=== PATIENT | female | born 1935 | race Caucasian/White ===

== ENCOUNTER 2017-11-21 11:25 | Emergency (ER) | payer MEDICARE, BC ==
[~2017-11-21] VITALS: Ht 152.4 cm; Wt 76.7 kg
[~2017-11-21 11:25] MED LIST: ACET-907 PO; LABE200T PO; NITR0.4T PO; ONDA4TAB8 PO; TRAM50TA2 PO; VALS1TAB52 PO
--- NOTE | 2017-11-21 11:38 | NUR ---
PT TO ED DT SOB. PATIENT IS AWAKE AND ALERT, APPEARS IN NO APPRARENT DISTRESS. RESPIRATION EVEN AND UNLABORED. SKIN IS WARM TO TOUCH AND NON DIAPHORETIC. PT IS AFEBRILE. VSS
[2017-11-21 13:23] LABS: BASOPHILS % (AUTO) 0.5 % (0.0-2.0); EOSINOPHILS % (AUTO) 0.6 % (0.0-6.0); HEMATOCRIT 42 % (33-45); HEMOGLOBIN 14.2 g/dL (11.5-14.8); LYMPHOCYTES # (AUTO) 1.3 /CMM (0.8-4.8); LYMPHOCYTES % (AUTO) 19.6 % (20.0-44.0); MEAN CORPUSCULAR HEMOGLOBIN 29 PG (26.0-33.0); MEAN CORPUSCULAR HGB CONC 34 g/dl (31.0-36.0); MEAN CORPUSCULAR VOLUME 85 fL (82-100); MONOCYTES # (AUTO) 0.3 /CMM (0.1-1.30); MONOCYTES % (AUTO) 4.4 % (2.0-12.0); NEUTROPHILS # (AUTO) 5.1 /CMM (1.8-8.9); NEUTROPHILS % (AUTO) 74.9 % (43.0-81.0); PLATELET COUNT (AUTO) 219 /CMM (150-450); RDW COEFFICIENT OF VARIATION 13.1 (11.5-15.0); RED BLOOD CELL COUNT(AUTO) 4.95 MIL/uL (4.0-5.2); WHITE BLOOD COUNT (AUTO) 6.7 K/uL (4.3-11.0)
[2017-11-21 13:35] LABS: CALCIUM, SERUM 8.4 mg/dL (8.5-10.1); CARBON DIOXIDE 31 mmol/L (21-32); CHLORIDE 101 mmol/L (98-107); CREATININE 1.8 mg/dL (0.6-1.3); GLUCOSE 91 mg/dL (74-106); POTASSIUM 4.1 mmol/L (3.5-5.1); SODIUM SERUM 139 mmol/L (136-145); UREA NITROGEN, BLOOD 22 mg/dL (7-18)
[2017-11-21 13:37] LABS: INR 0.95 (0.85-1.15)
[2017-11-21 13:45] LABS: TROPONIN I < 0.017 ng/mL (0.00-0.056)
[2017-11-21 14:40] LABS: ALBUMIN 3.4 g/dL (3.4-5.0); BILIRUBIN,DIRECT 0.1 mg/dL (0.0-0.2); BILIRUBIN,TOTAL 0.4 mg/dL (0.2-1.0)
[2017-11-21] MEDS ORDERED: ASPIRIN 81 MG TAB.CHEW ONE (15:17)
[2017-11-21] MEDS ORDERED: FUROSEMIDE 40 MG/4 ML VIAL ONE (15:17)
[2017-11-21] MEDS: FUROSEMIDE 40 MG/4 ML VIAL IV ONE (15:22)
[2017-11-21] MEDS: ASPIRIN 81 MG TAB.CHEW PO ONE (15:23)
--- NOTE | 2017-11-21 16:41 | NUR ---
MEAL TRAY AT
--- NOTE | 2017-11-21 18:34 | NUR ---
IV removed. Catheter intact and site benign. Pressure and 4x4 applied to site. No bleeding noted.
--- NOTE | 2017-11-21 18:36 | NUR ---
Patient discharged to home in stable condition. Written and verbal after care instructions given. Patient verbalizes understanding of instruction.
--- NOTE | 2017-11-21 19:05 | NUR ---
ASSUMED CARE: PT LAYING IN BED, A/O X 4/GCS 15, BREATHING UNLABORED, NSR ON COUNTER INTELLIGENCE, SKIN WARM/DRY, NO C/O PAIN AT THIS TIME, VS STABLE/WNL, UPDATED TO PLAN OF CARE
--- NOTE | 2017-11-21 19:38 | NUR ---
PT DAUGHTER BEDSIDE FOR P/U, PT D/C ASSISSTED BY WHEELCHAIR, D/C INSTRUCTIONS/PRESCRIPTIONS GIVEN, PT VERBALIZED UNDERSTANDING OF INSTRUCTIONS, VS STABLE/WNL, ALL BELONGINGS WENTHOME WITH PT
[2017-11-21 19:40] VITALS: BP 131/82
== END 2017-11-21 19:41 | disposition home or self-care (01) ==
LOC: ER 11:27
DX: R00.2 Palpitations (principal); I10 Essential (primary) hypertension; J45.909 Unspecified asthma, uncomplicated; M19.90 Unspecified osteoarthritis, unspecified site; Z86.73 Personal history of transient ischemic attack (TIA), and cerebral infarction without residual deficits; Z88.2 Allergy status to sulfonamides; Z88.1 Allergy status to other antibiotic agents
CPT/HCPCS: 36415; 71045-TC; 78582; 80048-TC; 80076-TC; 83880; 84484-TC; 85025-TC; 85730-TC; A4606; A9540; A9567; J1940; Z7610

== ENCOUNTER 2018-12-06 11:06 | Outpatient (CLI) | payer MEDICARE, MEDICAID ==
[~2018-12-06 11:06] MED LIST changes: -LABE200T PO; +LABE200T5 PO
[2018-12-06 12:23] LABS: CREATININE 1.7 mg/dL (0.6-1.3)
== END 2018-12-06 23:59 | disposition home or self-care (01) ==
LOC: LAB 11:06
PROVIDERS: ATTEND Internal Medicine Interventional Cardiology
DX: I12.9 Hypertensive chronic kidney disease with stage 1 through stage 4 chronic kidney disease, or unspecified chronic kidney disease (principal); N18.9 Chronic kidney disease, unspecified
CPT/HCPCS: 36415; 82565-TC; 84520-TC

== ENCOUNTER 2018-12-10 07:28 | Outpatient (CLI) | payer MEDICARE, MEDICAID ==
[~2018-12-10] VITALS: Ht 154.9 cm; Wt 95.3 kg
[2018-12-10] MEDS ORDERED: IV NS 0.9% 250 ML IV ONE (10:05)
[2018-12-10] MEDS ORDERED: CT SWABBABLE VALVE TRANS SET 1 EA INFUS.SET MC ONE (10:05)
[2018-12-10] MEDS ORDERED: IOHEXOL-350 100 ML VIAL IV ONE (10:05)
[2018-12-10] MEDS ORDERED: ONDANSETRON HCL/PF 4 MG/2 ML VIAL ONE (10:33)
[2018-12-10] MEDS ORDERED: METOPROLOL TARTRATE INJ 5 MG/5 ML AMPUL ONE ×2 (10:34→10:55)
[2018-12-10] MEDS ORDERED: NITROGLYCERIN 0.4 MG/TAB BOTTLE SL ONE (14:00)
[2018-12-10] MEDS ORDERED: IV NS 0.9% 500 ML IV ONE (14:00)
[2018-12-10] MEDS ORDERED: METOPROLOL TARTRATE INJ 5 MG/5 ML AMPUL IVP ONE (14:00)
== END 2018-12-10 23:59 | disposition home or self-care (01) ==
LOC: CT 07:28
PROVIDERS: ATTEND Internal Medicine Interventional Cardiology
DX: R07.9 Chest pain, unspecified (principal); R06.02 Shortness of breath; M47.814 Spondylosis without myelopathy or radiculopathy, thoracic region
CPT/HCPCS: 75574; J2405; J3490 ×2; J7050; Q9967

== ENCOUNTER 2019-03-13 09:43 | Outpatient (CLI) | payer MEDICARE, MEDICAID | END 2019-03-13 23:59 | disposition home or self-care (01) | LOC: RAD 09:43 | PROVIDERS: ATTEND Internal Medicine Interventional Cardiology | DX: Z01.818 Encounter for other preprocedural examination (principal); M89.412 Other hypertrophic osteoarthropathy, left shoulder; M89.411 Other hypertrophic osteoarthropathy, right shoulder; M46.04 Spinal enthesopathy, thoracic region; R91.8 Other nonspecific abnormal finding of lung field | CPT/HCPCS: 71046 ==

== ENCOUNTER 2020-05-12 16:56 | Inpatient (IN) | payer MEDICARE, OTHER ==
[~2020-05-12] VITALS: Ht 152.4 cm; Wt 75.7 kg
--- NOTE | 2020-05-12 17:16 | NUR ---
BIB FAMILY, SENT BY PMD FOR FURTHER EVAL FOR HIGH B/P AND BLE EDEMA, TO ER BED 9, HOOKED TO MONITOR, CHANGED TO HOSP GOWN, WARM BLANKET PROVIDED, PATIENT AAO x 3, BREATHING EVEN AND UNLABORED. AWAITING MD VILLARREAL
--- NOTE | 2020-05-12 17:28 | NUR ---
DR BANGURA AT BEDSIDE
[2020-05-12 17:57] LABS: BASOPHILS % (AUTO) 0.8 % (0.0-2.0); EOSINOPHILS % (AUTO) 0.6 % (0.0-6.0); HEMATOCRIT 41 % (33-45); HEMOGLOBIN 12.7 g/dL (11.5-14.8); LYMPHOCYTES # (AUTO) 1.2 /CMM (0.8-4.8); LYMPHOCYTES % (AUTO) 21.3 % (20.0-44.0); MEAN CORPUSCULAR HGB CONC 31 g/dl (31.0-36.0); MEAN CORPUSCULAR VOLUME 87 fL (82-100); MONOCYTES # (AUTO) 0.4 /CMM (0.1-1.30); MONOCYTES % (AUTO) 6.8 % (2.0-12.0); NEUTROPHILS % (AUTO) 70.5 % (43.0-81.0); PLATELET COUNT (AUTO) 175 /CMM (150-450); WHITE BLOOD COUNT (AUTO) 5.7 K/uL (4.3-11.0)
[2020-05-12] MEDS ORDERED: FUROSEMIDE 40 MG/4 ML VIAL IV ONE (18:00)
[2020-05-12] MEDS ORDERED: FUROSEMIDE 40 MG/4 ML VIAL ONE (18:03)
[2020-05-12 18:06] LABS: CARBON DIOXIDE 28 mmol/L (21-32); CHLORIDE 101 mmol/L (98-107); CREATININE 1.7 mg/dL (0.6-1.3); GLUCOSE 94 mg/dL (74-106); POTASSIUM 4.7 mmol/L (3.5-5.1); SODIUM SERUM 137 mmol/L (136-145); UREA NITROGEN, BLOOD 27 mg/dL (7-18)
[2020-05-12 18:19] LABS: ALANINE AMINOTRANSFERASE 16 U/L (12-78); ALBUMIN 3.3 g/dL (3.4-5.0); ALKALINE PHOSPHATASE 51 U/L (46-116); ASPARTATE AMINOTRANSFERASE 29 U/L (15-37); B-TYPE NATRIURETIC PEPTIDE 373 PG/ML (0-125); BILIRUBIN,DIRECT 0.1 mg/dL (0.0-0.2); BILIRUBIN,TOTAL 0.7 mg/dL (0.2-1.0); TOTAL PROTEIN, SERUM 6.6 g/dL (6.4-8.2)
[2020-05-12] MEDS ORDERED: LIDO30AD10 TP (19:13)
[2020-05-12] MEDS ORDERED: OXYC1TAB12 MT (19:13)
[2020-05-12] MEDS ORDERED: LINA290C PO (19:13)
[2020-05-12] MEDS ORDERED: ROSU5TAB PO (19:13)
[2020-05-12] MEDS ORDERED: PRED10TA PO (19:13)
[2020-05-12] MEDS ORDERED: FURO20TA4 PO (19:13)
[2020-05-12] MEDS ORDERED: FERR325T23 PO (19:13)
[2020-05-12] MEDS ORDERED: APIX2.5T PO (19:13)
[2020-05-12] MEDS ORDERED: PANT40TA4 PO (19:13)
[2020-05-12] MEDS ORDERED: MORPHINE SULFATE INJ 4 MG/ML DISP.SYRIN ONE (19:14)
[2020-05-12] MEDS ORDERED: ONDANSETRON HCL/PF 4 MG/2 ML VIAL ONE (19:14)
--- NOTE | 2020-05-12 19:16 | NUR ---
REPORT GIVEN TO [facility] FOR PAMELA
[2020-05-12] MEDS ORDERED: ACETAMINOPHEN W/ CODEINE#3 1 EA TABLET ONE (19:28)
[2020-05-12] MEDS ORDERED: MORPHINE SULFATE INJ 2 MG/ML DISP.SYRIN IV ONE (19:30)
[2020-05-12] MEDS ORDERED: ONDANSETRON HCL/PF 4 MG/2 ML VIAL IVP ONE (19:30)
[2020-05-12] MEDS ORDERED: ACETAMINOPHEN W/ CODEINE#3 1 EA TABLET PO ONE (19:30)
--- NOTE | 2020-05-12 19:31 | NUR ---
DE. BANGURA SPEAKING WITH VU CONNER NP
--- NOTE | 2020-05-12 19:39 | NUR ---
VU CONNER GUT SNATCHER AT BEDSIDE FOR EVALUATION
--- NOTE | 2020-05-12 19:48 | NUR ---
COVID SAMPLE TAKEN TO LAB BY JOURNEYMAN POWERHOUSE OPERATOR.
[2020-05-12] MEDS ORDERED: ACETAMINOPHEN 325 MG TABLET PO PRN (20:00)
[2020-05-12] MEDS ORDERED: CLONIDINE HCL 0.1 MG TABLET PO PRN (20:00)
[2020-05-12] MEDS ORDERED: MORPHINE SULFATE INJ 2 MG/ML DISP.SYRIN IV PRN (20:00)
[2020-05-12] MEDS ORDERED: MAG HYDROX/AL HYDROX/SIMETH 30 ML UDC PO PRN (20:00)
[2020-05-12] MEDS ORDERED: MAGNESIUM HYDROXIDE 30 ML UDC PO PRN (20:00)
[2020-05-12] MEDS ORDERED: HYDROCODONE/APAP 10/325MG 1 EA TABLET PO PRN (20:00)
--- NOTE | 2020-05-12 20:35 | NUR ---
Cam henry in [facility] - 05/12/20 at 2035 by JOE BED ASSIGNMENT 325-1
--- NOTE | 2020-05-12 20:35 | NUR ---
BED ASSIGNMENT 325-1
--- NOTE | 2020-05-12 20:48 | NUR ---
REPORT GIVEN TO [facility] FOR PAMELA.
--- NOTE | 2020-05-12 21:00 | NUR ---
MS/PHOTOLITH OPERATOR NOTE Received patient via alekrney from ER @ 2055. Patient is A/O x3, hard of hearing. Face is symmetrical, lips pink and moist. Tongue is midline. No JVD noted. Vital signs: BP 152/58 P104 T98.1 R18 O2 sat 100%. Breathing even, clear, unlabored. No SOB or acute distress. Afebrile. Patient denies pain. Skin warm, pink, dry, appropriate for ethnicity. Non-pitting edema noted on bilateral lower extremities. Bruising noted on bilateral forearms, left chest, and left calf. Photos taken and documented. CRP <3 seconds. Extremity strength WNL. IV site RFA 22g, saline lock, patent and intact. Patient was able to walk with standby assist to the bathroom and void via toilet. Urine output clear, yellow, no sediment. Bowel sounds active in all quadrants. Last bowel movement was this morning, small, brown formed. Appetite is adequate. Belongings documented and put in chart. Bed in low position, wheels locked, side rails up x2, call light within reach.
--- NOTE | 2020-05-12 21:11 | NUR ---
PATIENT TAKEN UP ASSIGNED ROOM.
--- NOTE | 2020-05-13 01:33 | NUR ---
MS/RN NOTE DC IV LFA 22g d/t patient c/o redness and pain. Reinserted new IV, left forearm 24g, saline lock. Site patent and intact.
[2020-05-13] MEDS: ONDANSETRON HCL/PF 4 MG/2 ML VIAL IVP PRN ×2 (02:53→21:29)
--- NOTE | 2020-05-13 04:39 | NUR ---
MS/RN NOTE Patient VTE score 4. Mechanical prophylaxis is contraindicated d/t bilateral lower extremity edema. No chemical prophylaxis ordered. Patient is on eliquis, per hospitalist.
[2020-05-13] MEDS: PANTOPRAZOLE 40 MG TABLET.DR PO SCH (06:47)
--- NOTE | 2020-05-13 07:03 | NUR ---
APPLICATIONS COORDINATOR OPENING NOTE RECEIVED PT AWAKE IN BED AT THIS TIME. A/O X 4, PT ABLE TO MAKE NEEDS KNOWN. NO SOB NOTED, NO S/S OF ANY ACUTE DISTRESS NOTED, NO C/O OF PAIN OR DISCOMFORT AT THIS TIME. BREATHING EVEN AND UNLABORED WITH EQUAL RISE AND FALL IN CHEST. SATURATING WELL ON RA. PT ON EXTERNAL CARDIAC TELE MONITOR READ NSR IN THE 80s. PT IS HARD OF HEARING. BLLE NOTED. IV ACCESS NOTED IN LFA G#24 INTACT AND PATENT. SAFETY PRECAUTIONS IN PLACE. BED IN LOWEST LOCKED POSITION, HOB ELEVATED, CALL LIGHT WITHIN REACH, BREAKS ON, SIDE RAILS UP. WILL CONTINUE TO MONITOR
--- NOTE | 2020-05-13 07:06 | NUR ---
MS/RN NOTE Patient blood pressure 217/116. MD made aware. Patient c/o of chest pain rating 8. Administered prescribed norco as ordered. Patient states the pain has relieved. Med effective. Will continue to monitor.
--- NOTE | 2020-05-13 07:26 | NUR ---
MS/RN CLOSING NOTE Patient awake in bed A/O x3, hard of hearing. Breathing even, clear, unlabored. No SOB or acute distress. Afebrile. Non-pitting edema noted on bilateral lower extremities. Bruising noted on bilateral forearms, left chest, and left calf. Photos taken and documented. CRP <3 seconds. Extremity strength WNL. IV site LFA 22g, saline lock, patent and intact. Urine output clear, yellow, no sediment. Bowel sounds active in all quadrants. Appetite is adequate. Bed in low position, wheels locked, side rails up x2, call light within reach.
[2020-05-13] MEDS ORDERED: PANTOPRAZOLE 40 MG TABLET.DR PO SCH (07:30)
[2020-05-13 07:33] LABS: BASOPHILS % (AUTO) 0.5 % (0.0-2.0); EOSINOPHILS % (AUTO) 0.6 % (0.0-6.0); HEMATOCRIT 39 % (33-45); HEMOGLOBIN 12.6 g/dL (11.5-14.8); LYMPHOCYTES # (AUTO) 1.6 /CMM (0.8-4.8); LYMPHOCYTES % (AUTO) 30.9 % (20.0-44.0); MEAN CORPUSCULAR HGB CONC 32 g/dl (31.0-36.0); MEAN CORPUSCULAR VOLUME 84 fL (82-100); MONOCYTES # (AUTO) 0.5 /CMM (0.1-1.30); MONOCYTES % (AUTO) 8.9 % (2.0-12.0); NEUTROPHILS # (AUTO) 3.1 /CMM (1.8-8.9); NEUTROPHILS % (AUTO) 59.1 % (43.0-81.0); PLATELET COUNT (AUTO) 212 /CMM (150-450); RED BLOOD CELL COUNT(AUTO) 4.65 MIL/uL (4.0-5.2); WHITE BLOOD COUNT (AUTO) 5.2 K/uL (4.3-11.0)
[2020-05-13 07:45] LABS: IRON, SERUM 36 ug/dl (50-175); TOTAL IRON BINDING CAPACITY 498 ug/dl (250-450)
[2020-05-13 08:00] VITALS: BP 169/99
[2020-05-13 08:00] LABS: CHOLESTEROL 178 mg/dL (<200); HDL CHOLESTEROL 97 mg/dL (40-60); LDL 62 mg/dL (0-99); THYROID STIMULATING HORMONE 3.719 uIU/mL (0.358-3.74); TRIGLYCERIDES 97 mg/dL (30-150)
[2020-05-13] MEDS ORDERED: CLONIDINE HCL 0.1 MG TABLET PO PRN (08:00)
[2020-05-13 08:10] LABS: ALANINE AMINOTRANSFERASE 18 U/L (12-78); ALBUMIN 3.3 g/dL (3.4-5.0); ALKALINE PHOSPHATASE 50 U/L (46-116); ASPARTATE AMINOTRANSFERASE 20 U/L (15-37); BILIRUBIN,TOTAL 0.4 mg/dL (0.2-1.0); CALCIUM, SERUM 8.5 mg/dL (8.5-10.1); CARBON DIOXIDE 31 mmol/L (21-32); CHLORIDE 100 mmol/L (98-107); CREATININE 1.9 mg/dL (0.6-1.3); GLUCOSE 87 mg/dL (74-106); PHOSPHORUS 3.5 mg/dL (2.5-4.9); POTASSIUM 3.3 mmol/L (3.5-5.1); SODIUM SERUM 138 mmol/L (136-145); TOTAL PROTEIN, SERUM 6.9 g/dL (6.4-8.2); UREA NITROGEN, BLOOD 26 mg/dL (7-18)
[2020-05-13] MEDS: APIXABAN 2.5 MG TABLET PO SCH ×2 (08:26→16:59)
[2020-05-13] MEDS: FERROUS SULFATE (325 MG) 325 MG/TAB TABLET PO SCH (08:28)
--- NOTE | 2020-05-13 08:29 | NUR ---
PT'S VS, BP 169/99, HR 86, RR 17, T 98.3, SPO2 100%. ADMINISTERED CATAPRES 0.1MG PO Q6HRS PRN FOR SBP>160 PER MD ORDER. WILL CONTINUE TO MONITOR
[2020-05-13] MEDS: LIDOCAINE 5% (PATCH) 1 EA PATCH TP SCH (08:30)
[2020-05-13] MEDS ORDERED: FUROSEMIDE 20 MG TABLET PO SCH (09:00)
[2020-05-13] MEDS: hydrALAZINE HCL 50 MG TABLET PO SCH ×3 (09:37→17:00)
[2020-05-13] MEDS: POTASSIUM CHLORIDE 20 MEQ TAB.PRT.SR PO SCH ×3 (09:37→11:49)
[2020-05-13] MEDS: NITROGLYCERIN 30 GM TUBE TP SCH ×3 (09:38→21:28)
[2020-05-13] MEDS ORDERED: POTASSIUM CHLORIDE 10 MEQ TABLET.SA PO ONE (10:30)
--- NOTE | 2020-05-13 14:00 | NUR ---
HADOOP CONSULTANT REQUESTED FOR PT'S HOME MEDICATION LINZESS. PT'S DAUGHTER (JUNITO) MADE AWARE. PER PT'S DAUGHTER, SHE WILL BRING MEDICATION TOMORROW 05/14/20. WILL ENDORSE TO RIVER CROSSING SUPERVISOR NURSE FOR PAMELA
[2020-05-13 16:00] VITALS: BP 121/70
[2020-05-13] MEDS ORDERED: Medication Not On Formulary EA (Rosuvastatin Calcium (Crestor) 5 MG) PO SCH (18:00)
[2020-05-13] MEDS: predniSONE 10 MG TABLET PO SCH (18:10)
--- NOTE | 2020-05-13 19:39 | NUR ---
PT'S DAUGHTER REQUESTED FOR DOCTOR TO CALL HER FOR UPDATES. DR LLOYD MADE AWARE. WILL ENDORSE TO PROSTHETIC LAB TECHNICIAN NURSE FOR PAMELA
--- NOTE | 2020-05-13 19:45 | NUR ---
MS RN NOTES PATIENT IN BED, AWAKE, ALERT AND ORIENTED X 4. BREATHING EVEN AND UNLABORED ON ROOM AIR. SHOWS NO SIGNS OF ACUTE RESPIRATORY DISTRESS, NO ACUTE PAIN. PT IS ABLE TO AMBULATE TO RESTROOM WITH ASSIST. IV ON LFA 24G ITS CLEAN DRY AND INTACT. SHOWS NO SIGNS OF INFILTRATION, NO REDNESS. SAFETY PRECAUTIONS IN PLACE. BED IN LOWEST POSITION, LOCKED, AND CALL LIGHT KEPT WITHIN REACH. WILL CONTINUE TO MONITOR.
[2020-05-13 20:00] VITALS: BP 119/74
--- NOTE | 2020-05-13 20:02 | NUR ---
MS RN CLOSING NOTES PT AWAKE IN BED AT THIS TIME. PT REMAINED STABLE THROUGHOUT SHIFT. PT KEPT CLEAN AND DRY. ALL CARE, NEEDS, TREATMENT AND MEDICATIONS ADMINISTERED ANTICIPATED PER ORDER. SAFETY PRECAUTIONS IN PLACE. BED IN LOWEST LOCKED POSITION, HOB ELEVATED, CALL LIGHT WITHIN REACH, BREAKS ON, SIDE RAILS UP. WILL ENDORSE TO CADDIE NURSE
[2020-05-13 20:46] VITALS: BP 119/74
[2020-05-13 21:26] LABS: APPEARANCE,URINE CLEAR (CLEAR); BILIRUBIN,URINE NEGATIVE (NEGATIVE); BLOOD, URINE NEGATIVE Ery/uL (NEGATIVE); COLOR,URINE YELLOW (YELLOW); KETONES,URINE NEGATIVE (NEGATIVE); LEUKOCYTE ESTERASE ,URINE NEGATIVE (NEGATIVE); NITRITE, URINE NEGATIVE (NEGATIVE); PROTEIN,URINE NEGATIVE (NEGATIVE); UGLUCOSE NEGATIVE (NEGATIVE); UROBILINOGEN,URINE 0.2 EU/dL (0.2)
[2020-05-13 21:28] LABS: EOSINOPHIL,URINE None Seen
[2020-05-13 21:29] LABS: URINE TOTAL PROTEIN 7.5 mg/dL (0-11.9)
--- NOTE | 2020-05-13 21:55 | NUR ---
MS RN NOTES PATIENT COMPLAINING OF NAUSEA. GIVEN PRN ZOFRAN AT 2128. WILL CONTINUE TO MONITOR.
[2020-05-13] MEDS ORDERED: ATORVASTATIN 10 MG TABLET PO SCH (22:00)
--- NOTE | 2020-05-14 06:53 | NUR ---
MS RN NOTES PATIENT IN BED, ASLEEP, ALERT AND ORIENTED X 4. BREATHING EVEN AND UNLABORED ON ROOM AIR. SHOWS NO SIGNS OF ACUTE RESPIRATORY DISTRESS, NO ACUTE PAIN. IV ON R WRIST 24G ITS CLEAN DRY AND INTACT. SHOWS NO SIGNS OF INFILTRATION, NO REDNESS. ALL DUE MEDICATIONS GIVEN. SAFETY PRECAUTIONS IN PLACE. BED IN LOWEST POSITION, LOCKED, AND CALL LIGHT KEPT WITHIN REACH. WILL ENDORSE TO ONCOMING NURSE.
[2020-05-14 07:00] LABS: HEMATOCRIT 37 % (33-45); LYMPHOCYTES # (AUTO) 0.6 /CMM (0.8-4.8); MEAN CORPUSCULAR HGB CONC 32 g/dl (31.0-36.0); MONOCYTES # (AUTO) 0.2 /CMM (0.1-1.30); WHITE BLOOD COUNT (AUTO) 5.2 K/uL (4.3-11.0)
--- NOTE | 2020-05-14 07:10 | NUR ---
MS RN NOTES PATIENT IN BED ALERT ORIENTED X 4. NO ACUTE DISTRESS NOTED. BREATHING UNLABORED. NO SOB NOTED. IV ACCESS PATENT AND INTACT, NO REDNESS, NO SWELLING NOTED. SAFETY MEASURES IN PLACE. CALL LIGHT WITHIN REACH. WILL CONTINUE TO MONITOR ACCORDINGLY.
[2020-05-14 07:12] LABS: BASOPHILS % (AUTO) 0.2 % (0.0-2.0); LYMPHOCYTES % (AUTO) 11.3 % (20.0-44.0); MEAN CORPUSCULAR VOLUME 84 fL (82-100); MONOCYTES % (AUTO) 4.4 % (2.0-12.0); NEUTROPHILS # (AUTO) 4.3 /CMM (1.8-8.9); NEUTROPHILS % (AUTO) 84.1 % (43.0-81.0); PLATELET COUNT (AUTO) 204 /CMM (150-450); RED BLOOD CELL COUNT(AUTO) 4.42 MIL/uL (4.0-5.2)
[2020-05-14 07:22] LABS: ALANINE AMINOTRANSFERASE 19 U/L (12-78); ALBUMIN 3.2 g/dL (3.4-5.0); ALKALINE PHOSPHATASE 45 U/L (46-116); ASPARTATE AMINOTRANSFERASE 16 U/L (15-37); BILIRUBIN,TOTAL 0.3 mg/dL (0.2-1.0); CALCIUM, SERUM 8.2 mg/dL (8.5-10.1); CARBON DIOXIDE 31 mmol/L (21-32); CHLORIDE 99 mmol/L (98-107); CREATININE 2.1 mg/dL (0.6-1.3); GLUCOSE 121 mg/dL (74-106); MAGNESIUM 1.9 mg/dL (1.8-2.4); SODIUM SERUM 138 mmol/L (136-145); TOTAL PROTEIN, SERUM 6.7 g/dL (6.4-8.2); UREA NITROGEN, BLOOD 28 mg/dL (7-18)
[2020-05-14 07:46] LABS: CREATINE KINASE, TOTAL 46 U/L (26-192)
[2020-05-14] MEDS: PANTOPRAZOLE 40 MG TABLET.DR PO SCH (07:47)
[2020-05-14 08:33] VITALS: BP 123/76
[2020-05-14] MEDS: hydrALAZINE HCL 50 MG TABLET PO SCH ×3 (08:42→17:30)
[2020-05-14] MEDS: FERROUS SULFATE (325 MG) 325 MG/TAB TABLET PO SCH (08:42)
[2020-05-14] MEDS: LIDOCAINE 5% (PATCH) 1 EA PATCH TP SCH (08:43)
[2020-05-14] MEDS: APIXABAN 2.5 MG TABLET PO SCH ×2 (08:43→17:30)
[2020-05-14] MEDS: NITROGLYCERIN 30 GM TUBE TP SCH ×2 (08:45→21:00)
[2020-05-14] MEDS ORDERED: HYDROCHLOROTHIAZIDE 25 MG TABLET PO SCH (09:00)
[2020-05-14] MEDS: ONDANSETRON HCL/PF 4 MG/2 ML VIAL IVP PRN (10:58)
--- NOTE | 2020-05-14 11:05 | NUR ---
MS RN NOTES PATIENT SEEN AND EVALUATED BY DR SHILA LLOYD, WITH NEW ORDERS MADE, NOTED AND CARRIED OUT.
[2020-05-14] MEDS ORDERED: HYDR25TA4 PO (11:07)
[2020-05-14] MEDS ORDERED: HYDR-4077 PO (11:07)
--- NOTE | 2020-05-14 13:00 | NUR ---
MS RN NOTES PATIENT REFUSED TO TAKE APRESOLINE DESPITE OF EXPLANATION OF RISKS OF BENEFITS.
[2020-05-14] MEDS: predniSONE 10 MG TABLET PO SCH (17:29)
--- NOTE | 2020-05-14 19:00 | NUR ---
MS RN NOTES PATIENT IN BED ALERT ORIENTED X 4. NO ACUTE DISTRESS NOTED. BREATHING UNLABORED. NO SOB NOTED. IV ACCESS PATENT AND INTACT, NO REDNESS, NO SWELLING NOTED. NEEDS ATTENDED AND ANTICIPATED. HEAD OF BED ELEVATED. SAFETY MEASURES IN PLACE. CALL LIGHT WITHIN REACH. PATIENT FOR DISCHARGE WAITING FOR DAUGHTER FOR EDUCATION PROGRAM MANAGER AFTER 9:00 PM ISAIAS, WILL ENDORSE TO NIGHT NURSE FOR CONTINUITY OF CARE AND DISCHARGE.
--- NOTE | 2020-05-14 19:20 | NUR ---
RN OPENING NOTES Received patient awake on bed, on RA, with hard of hearing. Discharge instructions given to patient, verbalized understanding. Discharge papers signed by the patient. Per pt's daughter, picker operator time will be after 9pm. All belongings accounted for. Pt refused for picture of skin discoloration at this time. Kept on bed clean, dry and comfortable. On fall and aspiration precautions. Call light within easy reach. Will continue to monitor accordingly.
[2020-05-14 20:00] VITALS: BP 122/71
--- NOTE | 2020-05-14 21:31 | NUR ---
GAS OPERATIONS SUPERINTENDENT NOTES Pt's daughter ready to sweet pickle maker the patient. Re-emphasize to patient the home meds list, patient is angry because she has no BP medication in the list. Instructed patient in case of worsening symptoms or emergency to call 911. Pt is resistant to instructions, witnessed by HILL Treviño. Transferred pt to wheelchair. Assisted by HILL Treviño to lobby. Peripheral IV line removed, complete and intact. All belongings accounted for, discharge papers handed to patient. Left the facility at this time.
[2020-05-15 07:28] LABS: PTH, INTACT 84 pg/mL (15-65)
[2020-05-18 06:13] LABS: *SPE ALBUMIN 2.9 g/dL (2.9-4.4); *SPE ALPHA-1-GLOBULIN 0.3 g/dL (0.0-0.4); *SPE ALPHA-2-GLOBULIN 0.9 g/dL (0.4-1.0); *SPE BETA GLOBULIN 1.1 g/dL (0.7-1.3); *SPE GLOBULIN, TOTAL 2.8 g/dL (2.2-3.9); *SPE M-SPIKE Not Observed g/dL (Not Observed); *SPEGAMMA GLOBULIN 0.5 g/dL (0.4-1.8)
== END 2020-05-14 21:37 | disposition home or self-care (01) | DRG 304 ==
LOC: ER 16:56 → TELE 20:48 → MED 05-13 11:05
PROVIDERS: ADMIT Nurse Practitioner Acute Care; ATTEND Internal Medicine
DX: I16.0 Hypertensive urgency (principal); N17.0 Acute kidney failure with tubular necrosis; E44.0 Moderate protein-calorie malnutrition; I13.0 Hypertensive heart and chronic kidney disease with heart failure and stage 1 through stage 4 chronic kidney disease, or unspecified chronic kidney disease; I50.9 Heart failure, unspecified; N18.9 Chronic kidney disease, unspecified; Z86.73 Personal history of transient ischemic attack (TIA), and cerebral infarction without residual deficits; J45.909 Unspecified asthma, uncomplicated; M19.90 Unspecified osteoarthritis, unspecified site; Z88.1 Allergy status to other antibiotic agents; Z88.2 Allergy status to sulfonamides; M48.00 Spinal stenosis, site unspecified; Z79.899 Other long term (current) drug therapy; Z86.711 Personal history of pulmonary embolism; H91.90 Unspecified hearing loss, unspecified ear; Z90.49 Acquired absence of other specified parts of digestive tract; Z98.890 Other specified postprocedural states; D50.9 Iron deficiency anemia, unspecified; N28.1 Cyst of kidney, acquired; Z79.01 Long term (current) use of anticoagulants
CPT/HCPCS: 36415; 71045-TC; 76770-TC; 80048-TC; 80053-TC; 80061-TC; 80076-TC; 81000-TC; 82550-TC; 82570-TC; 83540-TC; 83735-TC; 83880; 83970; 84100-TC; 84155; 84155-TC; 84165; 84300-TC; 84443-TC; 84484-TC; 85025-TC; 85730-TC; 87081-TC; 93307-TC; G0378; J1940; J2270; J2405

== ENCOUNTER 2020-06-30 11:45 | Outpatient (CLI) | payer MEDICARE, OTHER ==
[~2020-06-30 11:45] MED LIST changes: +APIX2.5T PO; +FERR325T23 PO; +FURO20TA4 PO; +HYDR-4077 PO; +HYDR25TA4 PO; -LABE200T5 PO; +LIDO30AD10 TP; +LINA290C PO; -NITR0.4T PO; +OXYC1TAB12 MT; +PANT40TA49 PO; +PRED10TA PO; +ROSU5TAB PO; -TRAM50TA2 PO; -VALS1TAB52 PO
[2020-06-30 13:53] LABS: BASOPHILS # (AUTO) 0.1 /CMM (0.0-0.2); BASOPHILS % (AUTO) 0.8 % (0.0-2.0); EOSINOPHILS % (AUTO) 1.3 % (0.0-6.0); HEMATOCRIT 40 % (33-45); HEMOGLOBIN 12.8 g/dL (11.5-14.8); LYMPHOCYTES # (AUTO) 2.1 /CMM (0.8-4.8); LYMPHOCYTES % (AUTO) 27.6 % (20.0-44.0); MEAN CORPUSCULAR HGB CONC 32 g/dl (31.0-36.0); MEAN CORPUSCULAR VOLUME 81 fL (82-100); MONOCYTES # (AUTO) 0.5 /CMM (0.1-1.30); MONOCYTES % (AUTO) 7.1 % (2.0-12.0); NEUTROPHILS # (AUTO) 4.8 /CMM (1.8-8.9); NEUTROPHILS % (AUTO) 63.2 % (43.0-81.0); PLATELET COUNT (AUTO) 254 /CMM (150-450); RED BLOOD CELL COUNT(AUTO) 4.91 MIL/uL (4.0-5.2); WHITE BLOOD COUNT (AUTO) 7.7 K/uL (4.3-11.0)
[2020-06-30 14:16] LABS: ALANINE AMINOTRANSFERASE 15 U/L (12-78); ALBUMIN 3.8 g/dL (3.4-5.0); ALKALINE PHOSPHATASE 46 U/L (46-116); ASPARTATE AMINOTRANSFERASE 18 U/L (15-37); BILIRUBIN,TOTAL 0.5 mg/dL (0.2-1.0); CARBON DIOXIDE 30 mmol/L (21-32); CHLORIDE 98 mmol/L (98-107); CREATININE 1.9 mg/dL (0.6-1.3); GLUCOSE 88 mg/dL (74-106); MAGNESIUM 1.5 mg/dL (1.8-2.4); PHOSPHORUS 3.9 mg/dL (2.5-4.9); POTASSIUM 3.6 mmol/L (3.5-5.1); SODIUM SERUM 139 mmol/L (136-145); TOTAL PROTEIN, SERUM 6.9 g/dL (6.4-8.2); UREA NITROGEN, BLOOD 27 mg/dL (7-18)
== END 2020-06-30 23:59 | disposition home or self-care (01) ==
LOC: MSC 11:45
PROVIDERS: ATTEND Internal Medicine
DX: I12.9 Hypertensive chronic kidney disease with stage 1 through stage 4 chronic kidney disease, or unspecified chronic kidney disease (principal); N18.3 Chronic kidney disease, stage 3 (moderate); R10.9 Unspecified abdominal pain; K21.9 Gastro-esophageal reflux disease without esophagitis; R32 Unspecified urinary incontinence; R06.00 Dyspnea, unspecified; C54.1 Malignant neoplasm of endometrium; I25.10 Atherosclerotic heart disease of native coronary artery without angina pectoris; Z98.61 Coronary angioplasty status; Z85.828 Personal history of other malignant neoplasm of skin; Z90.710 Acquired absence of both cervix and uterus; G47.30 Sleep apnea, unspecified
CPT/HCPCS: 36415; 80053; 83735; 83970; 84100; 85025; G0463

== ENCOUNTER 2021-02-16 10:40 | Inpatient (IN) | payer MEDICARE, OTHER ==
[~2021-02-16] VITALS: Ht 152.4 cm; Wt 72.1 kg
--- NOTE | 2021-02-16 11:00 | NUR ---
THE PATIENT IS SENT TO ER BY DR SULLIVAN, C/O BEING SICK AND HAVING DIARRHEA X 1 WEEK. THE PATIENT DENIES N/V AT THIS TIME. DENIES PAIN. ABDOMEN SOFT AND NON-DISTENDED. ATTACHED TO THE MONITOR. WARM BLANKET PROVIDED FOR COMFORT. WILL CONTINUE TO MONITOR THE PATIENT.
[2021-02-16] MEDS ORDERED: METO50TA16 PO (11:10)
[2021-02-16] MEDS ORDERED: DULO30CA52 PO (11:10)
[2021-02-16] MEDS ORDERED: ATOR80TA PO (11:10)
[2021-02-16] MEDS ORDERED: OLME40TA18 PO (11:10)
[2021-02-16] MEDS ORDERED: POTA10TA11 PO (11:10)
[2021-02-16] MEDS ORDERED: FAMO40TA7 PO (11:10)
--- NOTE | 2021-02-16 11:38 | NUR ---
COVID SWAB DONE AND SENT TO THE LAB
[2021-02-16] MEDS ORDERED: IV NS 0.9% 1,000 ML BAG IV ONE (12:00)
[2021-02-16] MEDS ORDERED: ONDANSETRON HCL/PF - ER 4 MG/2 ML VIAL IV ONE (12:00)
[2021-02-16] MEDS ORDERED: ONDANSETRON HCL/PF 4 MG/2 ML VIAL ONE (12:06)
[2021-02-16 12:12] LABS: BASOPHILS % (AUTO) 0.5 % (0.0-2.0); EOSINOPHILS % (AUTO) 1.1 % (0.0-6.0); HEMATOCRIT 37 % (33-45); HEMOGLOBIN 11.9 g/dL (11.5-14.8); LYMPHOCYTES # (AUTO) 1.4 /CMM (0.8-4.8); LYMPHOCYTES % (AUTO) 21.5 % (20.0-44.0); MEAN CORPUSCULAR HGB CONC 32 g/dl (31.0-36.0); MEAN CORPUSCULAR VOLUME 80 fL (82-100); MONOCYTES # (AUTO) 0.4 /CMM (0.1-1.30); MONOCYTES % (AUTO) 6.2 % (2.0-12.0); NEUTROPHILS # (AUTO) 4.5 /CMM (1.8-8.9); NEUTROPHILS % (AUTO) 70.7 % (43.0-81.0); PLATELET COUNT (AUTO) 214 /CMM (150-450); RED BLOOD CELL COUNT(AUTO) 4.65 MIL/uL (4.0-5.2); WHITE BLOOD COUNT (AUTO) 6.3 K/uL (4.3-11.0)
--- NOTE | 2021-02-16 12:16 | NUR ---
LAB CALLED PT COVID RESULT NEGATIVE.
[2021-02-16] MEDS ORDERED: CLOP75TA15 PO (12:17)
[2021-02-16 12:25] LABS: CALCIUM, SERUM 8.8 mg/dL (8.5-10.1); CARBON DIOXIDE 27 mmol/L (21-32); CHLORIDE 105 mmol/L (98-107); CREATININE 1.7 mg/dL (0.6-1.3); GLUCOSE 91 mg/dL (74-106); POTASSIUM 4.3 mmol/L (3.5-5.1); SODIUM SERUM 140 mmol/L (136-145); UREA NITROGEN, BLOOD 31 mg/dL (7-18)
[2021-02-16 12:30] LABS: ALANINE AMINOTRANSFERASE 12 U/L (12-78); ALBUMIN 3.3 g/dL (3.4-5.0); ALKALINE PHOSPHATASE 92 U/L (46-116); ASPARTATE AMINOTRANSFERASE 14 U/L (15-37); BILIRUBIN,DIRECT 0.1 mg/dL (0.0-0.2); BILIRUBIN,TOTAL 0.4 mg/dL (0.2-1.0); LIPASE 87 U/L (73-393); TOTAL PROTEIN, SERUM 6.6 g/dL (6.4-8.2)
--- NOTE | 2021-02-16 13:21 | NUR ---
BED 353-1
[2021-02-16 14:00] VITALS: BP 108/61
[2021-02-16] MEDS ORDERED: MAGNESIUM HYDROXIDE 30 ML UDC PO PRN (14:00)
[2021-02-16] MEDS ORDERED: IV NS 0.9% 1,000 ML IV ONE (14:00)
[2021-02-16] MEDS ORDERED: ACETAMINOPHEN W/ CODEINE#3 1 EA TABLET PO PRN (14:00)
[2021-02-16] MEDS ORDERED: ZOLPIDEM TARTRATE 5 MG TABLET PO PRN (14:00)
[2021-02-16] MEDS ORDERED: Medication Not On Formulary EA (Linaclotide (Linzess) 290 MCG) PO PRN (14:00)
[2021-02-16] MEDS ORDERED: ONDANSETRON HCL/PF 4 MG/2 ML VIAL IVP PRN (14:00)
[2021-02-16] MEDS ORDERED: MAG HYDROX/AL HYDROX/SIMETH 30 ML UDC PO PRN (14:00)
[2021-02-16] MEDS ORDERED: Z GUARD REMEDY 2 OZ OINT TP PRN (14:00)
[2021-02-16] MEDS ORDERED: ACETAMINOPHEN 325 MG TABLET PO PRN (14:00)
[2021-02-16] MEDS ORDERED: HYDROCODONE/APAP 5/325MG TABLET PO PRN (14:00)
--- NOTE | 2021-02-16 14:22 | NUR ---
the patient is transfered to [facility] [place] per policy and in stable condition.
[2021-02-16 14:25] VITALS: BP 147/64
--- NOTE | 2021-02-16 15:57 | NUR ---
MS RN NOTES PT ADMITTED TO UNIT AT 1420 VIA WHEELCHAIR ACCOMPANIED BY Tracy BENNETT. PT IS A/O X4. ABLE TO MAKE NEEDS KNOWN, DENIES PAIN OR DISCOMFORTS AT THIS TIME. PT ORIENTED TO STAFF AND UNIT. 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 ON ROOM AIR, TOLERATING WELL WITH SP02 OF 99% NOTED. PT WITH IV ACCESS ON LEFT WRIST G#22 INTACT AND PATENT, IVF OF NS @75ML/HR STARTED, NO /S/S OF INFILTRATIONS AT SITE NOTED. ABDOMEN SOFT, NON-TENDER AND NON-DISTENDED. LUNGS CLEAR BILATERALLY ON AUSCULTATION. SKIN ASSESSMENT DONE, PHOTOS TAKEN OF SKIN ISSUES AND FILED IN HER CHART. SAFETY MEASURES INITIATED: BED PLACED IN LOWEST LOCKED POSITION WITH UPPER SIDE RAILS UP X2. CALL LIGHT PLACED W/IN EASY REACH OF PT. WILL CONTINUE TO MONITOR PT ACCORDINGLY.
[2021-02-16 16:00] VITALS: BP 104/64
[2021-02-16] MEDS: METOPROLOL TARTRATE 50 MG TABLET PO SCH (16:43)
[2021-02-16] MEDS: APIXABAN 2.5 MG TABLET PO SCH (16:45)
--- NOTE | 2021-02-16 18:49 | NUR ---
MS RN CLOSING NOTES PATIENT IN BED AWAKE AND WATCHING TV AT THIS TIME. A/O X 4. ABLE TO MAKE NEEDS KNOWN. [place] WITH HEARING AIDS IN PLACE. ON ROOM, TOLERATING WELL WITH NO SOB NOTED. IV ACCES ON LEFT WRIST g#22 INTACT AND PATENT, IVF OF NS @ 75ML/HR INFUSING WELL, NO S/S OF INFILTRATIONS NOTED. SAFETY PRECAUTIONS MAINTAINED: BED IN LOWEST LOCKED POSITION, HOB ELEVATED, SIDE RAILS UP X2. CALL LIGHT AND BEDSIDE TABLE WITHIN REACH. ALL NEEDS AND CARE ATTENDED WELL. WILL ENDORSE PAMELA TO NIGHT
--- NOTE | 2021-02-16 19:30 | NUR ---
MS RN OPENING NOTES PATIENT WAS SEEN AWAKE LYING IN BED. PATIENT IS ALERT AND ORIENTED X4. 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 PATIENT IS ON ROOM AIR WITH NO RESPIRATORY DISTRESS NOTED. PATIENT HAS AN IV ACCESS ON HER LEFT WRIST GAUGE #22 RUNNING NORMAL SALINE AT 75 ML/HOUR. SAFETY PRECAUTIONS IN PLACE: BED LOCKED, SIDE RAILS UP, AND CALL LIGHT WITHIN REACH OF THE PATIENT. WILL CONTINUE TO MONITOR THE PATIENT.
[2021-02-16 20:00] VITALS: BP 144/76
[2021-02-16] MEDS: ATORVASTATIN 40 MG TABLET PO SCH (22:23)
[2021-02-17 06:03] LABS: BASOPHILS % (AUTO) 0.5 % (0.0-2.0); EOSINOPHILS % (AUTO) 1.5 % (0.0-6.0); HEMATOCRIT 35 % (33-45); HEMOGLOBIN 11.2 g/dL (11.5-14.8); LYMPHOCYTES # (AUTO) 1.8 /CMM (0.8-4.8); LYMPHOCYTES % (AUTO) 32.7 % (20.0-44.0); MEAN CORPUSCULAR HGB CONC 32 g/dl (31.0-36.0); MEAN CORPUSCULAR VOLUME 81 fL (82-100); MONOCYTES # (AUTO) 0.4 /CMM (0.1-1.30); MONOCYTES % (AUTO) 7.8 % (2.0-12.0); NEUTROPHILS # (AUTO) 3.1 /CMM (1.8-8.9); NEUTROPHILS % (AUTO) 57.5 % (43.0-81.0); PLATELET COUNT (AUTO) 188 /CMM (150-450); RED BLOOD CELL COUNT(AUTO) 4.35 MIL/uL (4.0-5.2); WHITE BLOOD COUNT (AUTO) 5.4 K/uL (4.3-11.0)
[2021-02-17 06:04] LABS: CALCIUM, SERUM 8.4 mg/dL (8.5-10.1); CARBON DIOXIDE 25 mmol/L (21-32); CHLORIDE 106 mmol/L (98-107); CREATININE 1.4 mg/dL (0.6-1.3); GLUCOSE 96 mg/dL (74-106); MAGNESIUM 1.9 mg/dL (1.8-2.4); PHOSPHORUS 4.2 mg/dL (2.5-4.9); SODIUM SERUM 141 mmol/L (136-145); UREA NITROGEN, BLOOD 24 mg/dL (7-18)
[2021-02-17 06:15] LABS: CHOLESTEROL 112 mg/dL (<200); HDL CHOLESTEROL 55 mg/dL (40-60); LDL 42 mg/dL (0-99); TRIGLYCERIDES 101 mg/dL (30-150)
--- NOTE | 2021-02-17 07:27 | NUR ---
MS RN OPENING NOTES PATIENT RECEIVED IN BED AWAKE AND WATCHING TV. A/O X 4. ABLE TO MAKE NEEDS KNOWN. [place] WITH HEARING AIDS IN PLACE TO BOTH EARS. ON ROOM, TOLERATING WELL WITH NO SOB NOTED. IV ACCES ON LEFT WRIST g#22 INTACT, PATENT AND FLUSHES WELL. SAFETY PRECAUTIONS IN PLACE: BED IN LOWEST LOCKED POSITION, HOB ELEVATED, SIDE RAILS UP X2. CALL LIGHT AND BEDSIDE TABLE WITHIN REACH. WILL CONTINUE TO MONITOR PT ACCORDINGLY.
--- NOTE | 2021-02-17 07:30 | NUR ---
MS RN CLOSING NOTES PATIENT WAS SEEN AWAKE LYING IN BED. PATIENT IS ALERT AND ORIENTED X4. PATIENT IS HARD OF HEARING. PATIENT IS ON ROOM AIR WITH NO RESPIRATORY DISTRESS NOTED. PATIENT HAS AN IV ACCESS ON HER LEFT WRIST WHICH IS INTACT, PATENT, AND FLUSHES WELL. SAFETY PRECAUTIONS IN PLACE: BED LOCKED, SIDE RAILS UPX2, BED ALARM ON, AND CALL LIGHT WITHIN REACH OF THE PATIENT. ENDORSED CARE TO DAY SHIFT NURSE.
[2021-02-17 08:00] VITALS: BP 155/79
[2021-02-17] MEDS ORDERED: DULOXETINE HCL 30 MG CAPSULE.DR PO SCH (09:00)
[2021-02-17] MEDS ORDERED: LOSARTAN POTASSIUM 50 MG TABLET PO SCH (09:00)
[2021-02-17] MEDS ORDERED: POTASSIUM CHLORIDE 10 MEQ TABLET.SA PO SCH (09:00)
[2021-02-17] MEDS ORDERED: FUROSEMIDE 20 MG TABLET PO SCH (09:00)
[2021-02-17 09:08] LABS: THYROID STIMULATING HORMONE 3.826 uIU/mL (0.358-3.74)
[2021-02-17] MEDS: LIDOCAINE 5% (PATCH) 1 EA PATCH TP SCH (09:40)
[2021-02-17] MEDS: FAMOTIDINE (20 MG) 20 MG TABLET PO SCH (09:41)
[2021-02-17] MEDS: METOPROLOL TARTRATE 50 MG TABLET PO SCH ×2 (09:42→17:16)
[2021-02-17] MEDS: CLOPIDOGREL BISULFATE 75 MG TABLET PO SCH (09:42)
[2021-02-17] MEDS: APIXABAN 2.5 MG TABLET PO SCH ×2 (09:46→17:18)
[2021-02-17] MEDS: VALSARTAN 80 MG TABLET PO SCH (09:55)
[2021-02-17] MEDS ORDERED: IV D5/0.45 NACL 1,000 ML IV PRN (11:30)
--- NOTE | 2021-02-17 11:36 | NUR ---
RN NOTES PT VOMITED SMALL AMOUNT OF UNDIGESTED FOOD. REFUSED ANTI-EMETIC AT THIS TIME. WILL CONTINUE TO MONITOR.
[2021-02-17] MEDS ORDERED: LORAZEPAM 1 MG TABLET PO PRN (12:30)
--- NOTE | 2021-02-17 12:38 | NUR ---
RN NOTES PT FOR COLLECTION OF STOOL SPECIMEN FOR C-DIFF. PT JUST HAD BOWEL MOVEMENT BUT STOOL IS SOFT FORM AND NOT WATERY. SPECIMEN NOT SEND TO LAB. WILL CONTINUE TO MONITOR.
[2021-02-17] MEDS: GABAPENTIN 300 MG CAPSULE PO SCH ×2 (13:00→17:27)
[2021-02-17] MEDS ORDERED: HYDROCODONE/APAP 10/325MG TABLET PO PRN (13:00)
[2021-02-17] MEDS ORDERED: HYDROCODONE/APAP 5/325MG TABLET PO PRN (14:00)
[2021-02-17 16:00] VITALS: BP 160/83
--- NOTE | 2021-02-17 18:41 | NUR ---
MS RN CLOSING NOTES PATIENT IN BED AWAKE, A/O X 4. ABLE TO MAKE NEEDS KNOWN. [place] OF HEAR[place] WITH HEARING AIDS IN PLACE ON BOTH EARS. ON ROOM AIR TOLERATING WELL WITH NO SOB NOTED. IV ACCES ON LEFT WRIST g#22 INTACT AND PATENT, IVF OF D5 1/2 NS @ 75ML/HR INFUSING WELL, NO S/S OF INFILTRATIONS NOTED. SAFETY PRECAUTIONS MAINTAINED: BED IN LOWEST LOCKED POSITION, KEPT HOB ELEVATED, SIDE RAILS UP X2. CALL LIGHT AND BEDSIDE TABLE WITHIN REACH. ALL NEEDS AND CARE ATTENDED WELL. WILL ENDORSE PAMELA TO CURAM DEVELOPER
--- NOTE | 2021-02-17 19:30 | NUR ---
MS RN OPENING NOTE PATIENT RESTING IN BED, A/O X 4. PATIENT STABLE ON ROOM AIR, NO SIGNS OF DISTRESS OR SHORTNESS OF BREATH NOTED. PATIENT ABLE TO MAKE NEEDS KNOWN. NO REPORTS OF PAIN AT THIS TIME. IV ACCESS ON LEFT WRIST #22G INTACT AND PATENT, RUNNING IVF D5 1/2 NS @ 75 ML/HR. SAFETY MEASURES IN PLACE, BED LOCKED IN LOWEST POSITION, CALL LIGHT WITHIN REACH, BED ALARM ON, SIDE RAILS UP X 2, HOB ELEVATED. WILL CONTINUE TO MONITOR. WILL CONTINUE PLAN OF CARE
[2021-02-17 20:52] VITALS: BP 126/70
[2021-02-17] MEDS: ATORVASTATIN 40 MG TABLET PO SCH (21:16)
[2021-02-18 06:04] LABS: BILIRUBIN,URINE NEGATIVE (NEGATIVE); COLOR,URINE YELLOW (YELLOW); LEUKOCYTE ESTERASE ,URINE NEGATIVE (NEGATIVE); NITRITE, URINE NEGATIVE (NEGATIVE); PROTEIN,URINE NEGATIVE (NEGATIVE); UGLUCOSE NEGATIVE (NEGATIVE); UROBILINOGEN,URINE 0.2 EU/dL (0.2)
[2021-02-18 06:19] LABS: CREATININE, URINE 104.1 MG/DL (30.0-125.0); URINE TOTAL PROTEIN 14.8 mg/dL (0-11.9)
[2021-02-18 06:48] LABS: EOSINOPHIL,URINE None Seen
--- NOTE | 2021-02-18 06:48 | NUR ---
MS RN CLOSING NOTE PATIENT SLEEPING IN BED, A/O X 4. PATIENT STABLE ON ROOM AIR, NO SIGNS OF DISTRESS OR SHORTNESS OF BREATH NOTED. PATIENT ABLE TO MAKE NEEDS KNOWN. NO REPORTS OF PAIN AT THIS TIME. NO DIARRHEA OR VOMITING THROUGHOUT SHIFT. IV ACCESS ON LEFT HAND #22G INTACT AND PATENT, RUNNING IVF D5 1/2 NS @ 75 ML/HR. MEDICATIONS GIVEN ORDERED. PATIENT NEEDS MET THROUGHOUT SHIFT. URINE FOR UA COLLECTED. SAFETY MEASURES IN PLACE, BED LOCKED IN LOWEST POSITION, CALL LIGHT WITHIN REACH, BED ALARM ON, SIDE RAILS UP X 2, HOB ELEVATED. WILL ENDORSE TO DAY SHIFT NURSE FOR CONTINUITY OF CARE
[2021-02-18 06:53] LABS: BASOPHILS % (AUTO) 0.8 % (0.0-2.0); EOSINOPHILS % (AUTO) 1.8 % (0.0-6.0); HEMATOCRIT 33 % (33-45); HEMOGLOBIN 10.7 g/dL (11.5-14.8); LYMPHOCYTES # (AUTO) 1.5 /CMM (0.8-4.8); LYMPHOCYTES % (AUTO) 29.7 % (20.0-44.0); MEAN CORPUSCULAR HGB CONC 32 g/dl (31.0-36.0); MEAN CORPUSCULAR VOLUME 80 fL (82-100); MONOCYTES # (AUTO) 0.4 /CMM (0.1-1.30); MONOCYTES % (AUTO) 7.4 % (2.0-12.0); NEUTROPHILS # (AUTO) 3.1 /CMM (1.8-8.9); NEUTROPHILS % (AUTO) 60.3 % (43.0-81.0); PLATELET COUNT (AUTO) 180 /CMM (150-450); RED BLOOD CELL COUNT(AUTO) 4.17 MIL/uL (4.0-5.2); WHITE BLOOD COUNT (AUTO) 5.1 K/uL (4.3-11.0)
[2021-02-18 07:14] LABS: ALANINE AMINOTRANSFERASE 13 U/L (12-78); ALKALINE PHOSPHATASE 80 U/L (46-116); ASPARTATE AMINOTRANSFERASE 13 U/L (15-37); BILIRUBIN,TOTAL 0.5 mg/dL (0.2-1.0); CALCIUM, SERUM 8.7 mg/dL (8.5-10.1); CARBON DIOXIDE 27 mmol/L (21-32); CHLORIDE 105 mmol/L (98-107); CREATININE 1.5 mg/dL (0.6-1.3); GLUCOSE 100 mg/dL (74-106); MAGNESIUM 1.8 mg/dL (1.8-2.4); PHOSPHORUS 3.7 mg/dL (2.5-4.9); POTASSIUM 4.2 mmol/L (3.5-5.1); SODIUM SERUM 138 mmol/L (136-145); TOTAL PROTEIN, SERUM 5.7 g/dL (6.4-8.2); UREA NITROGEN, BLOOD 19 mg/dL (7-18)
[2021-02-18 07:31] LABS: CREATINE KINASE, TOTAL 49 U/L (26-192)
--- NOTE | 2021-02-18 07:32 | NUR ---
MS RN OPENING NOTES PATIENT RECEIVED AWAKE, LAYING IN BED. A/O X4. NO COMPLAINTS OF PAIN. NO SIGNS OR SYMPTOMS OF DISTRESS. ABLE MAKE NEEDS KNOWN. ON ROOM AIR, TOLERATING WELL, NO SOB NOTED. SAFETY MEASURES IN PLACE: BED IS LOCKED AND IN THE LOWEST POSITION, SIDE RAILS UP X2 AND CALL LIGHT WITHIN REACH. WILL CONTINUE TO MONITOR THROUGHOUT THE SHIFT.
--- NOTE | 2021-02-18 07:38 | NUR ---
WOUND CARE CONSULT: PT PRESENTS WITH BLANCHABLE REDNESS TO HEELS AND SACRUM/BUTTOCKS AREA, PRESENT ON ADMISSION. PT IS ABLE TO TURN AND REPOSITION IN BED. RECOMMENDATIONS MADE FOR SKIN PROTECTION. DISCUSSED WITH NURSING STAFF. WILL SEE PRN. BROWN IN AGREEMENT WITH PLAN OF CARE.
[2021-02-18 08:00] VITALS: BP 122/85
[2021-02-18] MEDS: LIDOCAINE 5% (PATCH) 1 EA PATCH TP SCH ×2 (08:28→08:36)
[2021-02-18] MEDS: SERTRALINE HCL 25 MG TABLET PO SCH (08:28)
[2021-02-18] MEDS: CLOPIDOGREL BISULFATE 75 MG TABLET PO SCH (08:28)
[2021-02-18] MEDS: VALSARTAN 80 MG TABLET PO SCH (08:29)
[2021-02-18] MEDS: METOPROLOL TARTRATE 50 MG TABLET PO SCH ×2 (08:31→17:16)
[2021-02-18] MEDS: GABAPENTIN 300 MG CAPSULE PO SCH ×2 (08:32→17:16)
[2021-02-18] MEDS: APIXABAN 2.5 MG TABLET PO SCH ×2 (08:32→17:19)
[2021-02-18] MEDS: FAMOTIDINE (20 MG) 20 MG TABLET PO SCH (08:32)
[2021-02-18 16:00] VITALS: BP 103/66
--- NOTE | 2021-02-18 19:19 | NUR ---
MS RN NOTES REPORT GIVEN TO HARSH MARTINEZ FOR CONTINUITY OF CARE.
--- NOTE | 2021-02-18 20:00 | NUR ---
MS RN OPENING NOTE PATIENT RESTING IN BED, A/O X 4. PATIENT STABLE ON ROOM AIR, NO SIGNS OF DISTRESS OR SHORTNESS OF BREATH NOTED. PATIENT ABLE TO MAKE NEEDS KNOWN. NO REPORTS OF PAIN AT THIS TIME. IV ACCESS ON LEFT WRIST #22G INTACT AND PATENT, SALINE LOCKED. SAFETY MEASURES IN PLACE, BED LOCKED IN LOWEST POSITION, CALL LIGHT WITHIN REACH, BED ALARM ON, SIDE RAILS UP X 2, HOB ELEVATED. WILL CONTINUE TO MONITOR. WILL CONTINUE PLAN OF CARE
[2021-02-18] MEDS: ATORVASTATIN 40 MG TABLET PO SCH (22:51)
--- NOTE | 2021-02-19 06:52 | NUR ---
MS RN CLOSING NOTE PATIENT RESTING IN BED, A/O X 4. PATIENT STABLE ON ROOM AIR, NO SIGNS OF DISTRESS OR SHORTNESS OF BREATH NOTED. PATIENT ABLE TO MAKE NEEDS KNOWN. NO REPORTS OF PAIN AT THIS TIME. NO DIARRHEA OR VOMITING THROUGHOUT SHIFT.. MEDICATIONS GIVEN ORDERED. PATIENT NEEDS MET THROUGHOUT SHIFT. SAFETY MEASURES IN PLACE, BED LOCKED IN LOWEST POSITION, CALL LIGHT WITHIN REACH, BED ALARM ON, SIDE RAILS UP X 2, HOB ELEVATED. WILL ENDORSE TO DAY SHIFT NURSE FOR CONTINUITY OF CARE
[2021-02-19 07:22] LABS: BASOPHILS % (AUTO) 0.5 % (0.0-2.0); EOSINOPHILS % (AUTO) 1.9 % (0.0-6.0); HEMATOCRIT 34 % (33-45); LYMPHOCYTES # (AUTO) 1.5 /CMM (0.8-4.8); LYMPHOCYTES % (AUTO) 34.7 % (20.0-44.0); MEAN CORPUSCULAR HGB CONC 33 g/dl (31.0-36.0); MEAN CORPUSCULAR VOLUME 80 fL (82-100); MONOCYTES # (AUTO) 0.3 /CMM (0.1-1.30); NEUTROPHILS # (AUTO) 2.3 /CMM (1.8-8.9); NEUTROPHILS % (AUTO) 54.9 % (43.0-81.0); PLATELET COUNT (AUTO) 172 /CMM (150-450); RED BLOOD CELL COUNT(AUTO) 4.22 MIL/uL (4.0-5.2); WHITE BLOOD COUNT (AUTO) 4.2 K/uL (4.3-11.0)
--- NOTE | 2021-02-19 07:33 | NUR ---
MS RN OPENING NOTES PATIENT RECEIVED IN BED, ASLEEP, EASILY AWAKEN BY VERBAL AND TACTILE STIMULI. [place] WITH HEARING AIDS IN PLACE TO BOTH EARS. ON ROOM AIR, NO SOB NOTED. NO ACUTE SIGNS AND SYMPTOMS OF DISTRESS NOTED. IV ACCES ON LEFT HAND g#22 INTACT, PATENT AND FLUSHES WELL. NO INFILTRATIONS NOTED. SAFETY PRECAUTIONS IN PLACE: BED IN LOWEST LOCKED POSITION, HOB ELEVATED, SIDE RAILS UP X2. CALL LIGHT AND BEDSIDE TABLE WITHIN REACH. WILL CONTINUE TO MONITOR PT'S CURRENT STATUS.
[2021-02-19 07:36] LABS: CALCIUM, SERUM 8.5 mg/dL (8.5-10.1); CARBON DIOXIDE 27 mmol/L (21-32); CHLORIDE 106 mmol/L (98-107); CREATININE 1.5 mg/dL (0.6-1.3); GLUCOSE 86 mg/dL (74-106); POTASSIUM 4.3 mmol/L (3.5-5.1); SODIUM SERUM 140 mmol/L (136-145); UREA NITROGEN, BLOOD 18 mg/dL (7-18)
[2021-02-19 08:00] VITALS: BP 130/76
[2021-02-19] MEDS: CLOPIDOGREL BISULFATE 75 MG TABLET PO SCH (08:25)
[2021-02-19] MEDS: FAMOTIDINE (20 MG) 20 MG TABLET PO SCH (08:25)
[2021-02-19] MEDS: GABAPENTIN 300 MG CAPSULE PO SCH ×2 (08:25→16:59)
[2021-02-19] MEDS: LIDOCAINE 5% (PATCH) 1 EA PATCH TP SCH (08:25)
[2021-02-19] MEDS: METOPROLOL TARTRATE 50 MG TABLET PO SCH ×2 (08:26→17:00)
[2021-02-19] MEDS: SERTRALINE HCL 25 MG TABLET PO SCH (08:26)
[2021-02-19] MEDS: APIXABAN 2.5 MG TABLET PO SCH ×2 (08:27→17:01)
[2021-02-19] MEDS: VALSARTAN 80 MG TABLET PO SCH (08:32)
[2021-02-19 16:00] VITALS: BP 129/72
--- NOTE | 2021-02-19 18:35 | NUR ---
RN CLOSING NOTES: PATIENT IN BED, AWAKE AND WATCHING TV, A/O X 4. PATIENT STABLE ON ROOM AIR, NO SIGNS OF DISTRESS OR SHORTNESS OF BREATH NOTED. ABLE TO MAKE NEEDS KNOWN. NO COMPLAINTS OF PAIN AT THIS TIME. NO DIARRHEA OR VOMITING THROUGHOUT SHIFT. IV ACCESS ON LEFT HAND G#22 INTACT, PATENT AND FLUSHES WELL. SAFETY MEASURES MAINTAINED: BED LOCKED IN LOWEST POSITION, CALL LIGHT WITHIN REACH, BED ALARM ON, SIDE RAILS UP X 2, HOB ELEVATED. ENDORSED TO BUDGET SPECIALIST RN FOR CONTINUITY OF CARE.
[2021-02-19 20:00] VITALS: BP 116/65
--- NOTE | 2021-02-19 20:00 | NUR ---
MS RN OPENING NOTE RECEIVED PT AWAKE IN BED. A/O X4. PT IS STABLE ON ROOM AIR. NO SOB NOTED. NO S/S OF RESPIRATORY DISTRESS. PT IS AMBULATORY WITH BRP ASSIST. PT HAS NO C/O PAIN OR DISCOMFORT AT THIS TIME. IV ACCESS NOTED IN LEFT HAND #22, SALINE-LOCKED. IV IS INTACT, PATENT, AND FLUSHING WELL. SAFETY MEASURES MAINTAINED. BED IN LOWEST LOCKED POSITION, HOB ELEVATED, SIDE RAILS UP X2. CALL LIGHT AND TABLE WITHIN REACH. WILL CONTINUE WITH PLAN OF CARE.
[2021-02-19] MEDS: ATORVASTATIN 40 MG TABLET PO SCH (21:46)
[2021-02-20 05:08] LABS: PTH, INTACT 25 pg/mL (15-65)
--- NOTE | 2021-02-20 06:13 | NUR ---
MS RN CLOSING NOTE PT IS AWAKE IN BED AT THIS TIME. A/O X4. PT IS STABLE ON ROOM AIR. NO SOB NOTED. NO S/S OF RESPIRATORY DISTRESS. PT HAS NO C/O PAIN OR DISCOMFORT AT THIS TIME. IV ACCESS IS INTACT, PATENT, AND FLUSHING WELL. ALL NEEDS HAVE BEEN MET. SAFETY MEASURES MAINTAINED AT ALL TIMES. BED IN LOWEST LOCKED POSITION, HOB ELEVATED, SIDE RAILS UP X2. CALL LIGHT AND TABLE WITHIN REACH. WILL ENDORSE TO ONCOMING NURSE FOR CONTINUITY OF CARE.
[2021-02-20 06:49] LABS: BASOPHILS % (AUTO) 0.6 % (0.0-2.0); EOSINOPHILS % (AUTO) 1.9 % (0.0-6.0); HEMATOCRIT 34 % (33-45); HEMOGLOBIN 11.1 g/dL (11.5-14.8); LYMPHOCYTES # (AUTO) 2.2 /CMM (0.8-4.8); LYMPHOCYTES % (AUTO) 40.6 % (20.0-44.0); MEAN CORPUSCULAR HGB CONC 32 g/dl (31.0-36.0); MEAN CORPUSCULAR VOLUME 80 fL (82-100); MONOCYTES # (AUTO) 0.5 /CMM (0.1-1.30); MONOCYTES % (AUTO) 8.5 % (2.0-12.0); NEUTROPHILS # (AUTO) 2.6 /CMM (1.8-8.9); NEUTROPHILS % (AUTO) 48.4 % (43.0-81.0); PLATELET COUNT (AUTO) 186 /CMM (150-450); RED BLOOD CELL COUNT(AUTO) 4.26 MIL/uL (4.0-5.2); WHITE BLOOD COUNT (AUTO) 5.4 K/uL (4.3-11.0)
[2021-02-20 07:05] LABS: CALCIUM, SERUM 8.5 mg/dL (8.5-10.1); CARBON DIOXIDE 28 mmol/L (21-32); CHLORIDE 105 mmol/L (98-107); CREATININE 1.4 mg/dL (0.6-1.3); GLUCOSE 84 mg/dL (74-106); MAGNESIUM 1.9 mg/dL (1.8-2.4); PHOSPHORUS 4.3 mg/dL (2.5-4.9); POTASSIUM 4.5 mmol/L (3.5-5.1); SODIUM SERUM 138 mmol/L (136-145); UREA NITROGEN, BLOOD 22 mg/dL (7-18)
--- NOTE | 2021-02-20 07:21 | NUR ---
MS RN OPENING NOTES PATIENT RECEIVED IN BED, ASLEEP, EASILY AWAKEN BY VERBAL AND TACTILE STIMULI. HARD OF HEAR[place] WITH HEARING AIDS IN PLACE TO BOTH EARS. ON ROOM AIR, NO SOB NOTED. NO ACUTE SIGNS AND SYMPTOMS OF DISTRESS NOTED. IV ACCES ON LEFT HAND g#22 INTACT, PATENT AND FLUSHES WELL. NO INFILTRATIONS NOTED. SAFETY PRECAUTIONS IN PLACE: BED IN LOWEST LOCKED POSITION, HOB KEPT ELEVATED, SIDE RAILS UP X2. CALL LIGHT AND BEDSIDE TABLE WITHIN REACH. WILL CONTINUE TO MONITOR PT'S CURRENT STATUS.
[2021-02-20 08:00] VITALS: BP 113/55
[2021-02-20] MEDS ORDERED: IV NS 0.9% 1,000 ML IV ONE (08:00)
[2021-02-20] MEDS: FAMOTIDINE (20 MG) 20 MG TABLET PO SCH (09:20)
[2021-02-20] MEDS: GABAPENTIN 300 MG CAPSULE PO SCH ×2 (09:20→16:50)
[2021-02-20] MEDS: SERTRALINE HCL 25 MG TABLET PO SCH (09:20)
[2021-02-20] MEDS: VALSARTAN 80 MG TABLET PO SCH (09:20)
[2021-02-20] MEDS: CLOPIDOGREL BISULFATE 75 MG TABLET PO SCH (09:20)
[2021-02-20] MEDS: METOPROLOL TARTRATE 50 MG TABLET PO SCH ×2 (09:21→16:51)
[2021-02-20] MEDS: APIXABAN 2.5 MG TABLET PO SCH ×2 (09:22→16:52)
[2021-02-20] MEDS: LIDOCAINE 5% (PATCH) 1 EA PATCH TP SCH (09:23)
--- NOTE | 2021-02-20 14:47 | NUR ---
RN NOTES PT'S IV ACCESS ON LEFT HAND NOTED LEAKING AND WAS REMOVED. NEW IV ACCESS INSERTED ON RIGHT HAND G#22, TAPED AND DATED. IVF OF NS @ 75ML/HR RESUMED. WILL CONTINUE TO MONITOR.
[2021-02-20 16:00] VITALS: BP 116/77
--- NOTE | 2021-02-20 18:48 | NUR ---
MS RN CLOSING NOTES: PATIENT IN BED, AWAKE, READING A BOOK, A/O X 4. PATIENT STABLE ON ROOM AIR, NO SIGNS OF DISTRESS OR SHORTNESS OF BREATH NOTED. ABLE TO MAKE NEEDS KNOWN. NO COMPLAINTS OF PAIN AT THIS TIME. NO DIARRHEA OR VOMITING THROUGHOUT SHIFT. IV ACCESS ON RIGHT HAND G#22 INTACT, PATENT AND FLUSHES WELL. SAFETY MEASURES MAINTAINED: BED LOCKED IN LOWEST POSITION, CALL LIGHT WITHIN REACH, BED ALARM ON, SIDE RAILS UP X 2, HOB ELEVATED. ENDORSED TO COAGULATING DRYING SUPERVISOR RN FOR CONTINUITY OF CARE.
[2021-02-20 20:00] VITALS: BP 119/63
--- NOTE | 2021-02-20 20:00 | NUR ---
MS RN OPENING NOTE RECEIVED PT AWAKE IN BED. A/O X4. PT IS STABLE ON ROOM AIR. NO SOB NOTED. NO S/S OF RESPIRATORY DISTRESS. PT IS AMBULATORY WITH BRP ASSIST. PT HAS NO C/O PAIN OR DISCOMFORT AT THIS TIME. IV ACCESS NOTED IN RIGHT HAND #22, INFUSING NS @ 75 ML/HR. IV IS INTACT, PATENT, AND FLUSHING WELL. SAFETY MEASURES MAINTAINED. BED IN LOWEST LOCKED POSITION, HOB ELEVATED, SIDE RAILS UP X2. CALL LIGHT AND TABLE WITHIN REACH. WILL CONTINUE WITH PLAN OF CARE.
[2021-02-20] MEDS: ATORVASTATIN 40 MG TABLET PO SCH (22:20)
--- NOTE | 2021-02-21 06:39 | NUR ---
MS RN CLOSING NOTE PT IS AWAKE IN BED AT THIS TIME. A/O X4. PT IS STABLE ON ROOM AIR. NO SOB NOTED. NO S/S OF RESPIRATORY DISTRESS. PT IS AMBULATORY WITH BRP ASSIST. PT HAS NO C/O PAIN OR DISCOMFORT AT THIS TIME. IV ACCESS IS INTACT, PATENT, AND FLUSHING WELL. ALL NEEDS HAVE BEEN MET. SAFETY MEASURES MAINTAINED AT ALL TIMES. BED IN LOWEST LOCKED POSITION, HOB ELEVATED, SIDE RAILS UP X2. CALL LIGHT AND TABLE WITHIN REACH. WILL ENDORSE TO ONCOMING NURSE FOR CONTINUITY OF CARE.
[2021-02-21 06:52] LABS: BASOPHILS % (AUTO) 0.7 % (0.0-2.0); EOSINOPHILS % (AUTO) 2.6 % (0.0-6.0); HEMATOCRIT 35 % (33-45); HEMOGLOBIN 11.3 g/dL (11.5-14.8); LYMPHOCYTES # (AUTO) 2.1 /CMM (0.8-4.8); LYMPHOCYTES % (AUTO) 37.8 % (20.0-44.0); MEAN CORPUSCULAR HGB CONC 33 g/dl (31.0-36.0); MEAN CORPUSCULAR VOLUME 79 fL (82-100); MONOCYTES # (AUTO) 0.5 /CMM (0.1-1.30); MONOCYTES % (AUTO) 8.4 % (2.0-12.0); NEUTROPHILS # (AUTO) 2.8 /CMM (1.8-8.9); NEUTROPHILS % (AUTO) 50.5 % (43.0-81.0); PLATELET COUNT (AUTO) 197 /CMM (150-450); RED BLOOD CELL COUNT(AUTO) 4.39 MIL/uL (4.0-5.2); WHITE BLOOD COUNT (AUTO) 5.5 K/uL (4.3-11.0)
[2021-02-21 07:06] LABS: CALCIUM, SERUM 8.4 mg/dL (8.5-10.1); CARBON DIOXIDE 30 mmol/L (21-32); CHLORIDE 104 mmol/L (98-107); CREATININE 1.4 mg/dL (0.6-1.3); GLUCOSE 78 mg/dL (74-106); POTASSIUM 4.6 mmol/L (3.5-5.1); SODIUM SERUM 140 mmol/L (136-145); UREA NITROGEN, BLOOD 25 mg/dL (7-18)
--- NOTE | 2021-02-21 08:00 | NUR ---
RN OPENING NOTE PATIENT AWAKE IN BED RESTING. A/O X3 AND TAJIK SPEAKING. CURRENTLY ON RA WITH NO SOB OR RESPIRATORY DISTRESS PRESENT. NO EDEMA PRESENT. AMBULATORY WITH ASSIST. HL PRESENT ON R HAND 22G AND FLUSHES WELL. SKIN IS INTACT. SAFETY MEASURES IN PLACE. SIDE RAILS RAISED. BED LOWERED. CALL LIGHT WITHIN REACH. WILL CONTINUE TO MONITOR.
[2021-02-21] MEDS ORDERED: SERT-437 PO (08:11)
[2021-02-21] MEDS ORDERED: GABA300C PO (08:11)
[2021-02-21] MEDS ORDERED: VALS160T2 PO (08:11)
[2021-02-21 08:27] VITALS: BP 142/76
[2021-02-21] MEDS: GABAPENTIN 300 MG CAPSULE PO SCH ×2 (09:00→09:27)
[2021-02-21] MEDS: METOPROLOL TARTRATE 50 MG TABLET PO SCH (09:00)
[2021-02-21] MEDS: FAMOTIDINE (20 MG) 20 MG TABLET PO SCH ×2 (09:00→09:27)
[2021-02-21] MEDS: VALSARTAN 80 MG TABLET PO SCH (09:25)
[2021-02-21] MEDS: SERTRALINE HCL 25 MG TABLET PO SCH (09:27)
[2021-02-21] MEDS: LIDOCAINE 5% (PATCH) 1 EA PATCH TP SCH (09:27)
[2021-02-21] MEDS: CLOPIDOGREL BISULFATE 75 MG TABLET PO SCH (09:27)
[2021-02-21] MEDS: APIXABAN 2.5 MG TABLET PO SCH (09:29)
[2021-02-21 12:00] VITALS: BP 154/68
[2021-02-21 14:06] LABS: *SPE A/G RATIO 1.4 (0.7-1.7); *SPE ALPHA-1-GLOBULIN 0.2 g/dL (0.0-0.4); *SPE ALPHA-2-GLOBULIN 0.7 g/dL (0.4-1.0); *SPE BETA GLOBULIN 0.8 g/dL (0.7-1.3); *SPE GLOBULIN, TOTAL 2.2 g/dL (2.2-3.9); *SPE M-SPIKE Not Observed g/dL (Not Observed); *SPEGAMMA GLOBULIN 0.5 g/dL (0.4-1.8)
--- NOTE | 2021-02-21 15:13 | NUR ---
AUTOMATIC SEAMER NOTE PT DISCHARGED HOME VIA PRIVATE TRANSPORTATION. REPORT AND FACE SHEET GIVEN TO TRANSPORTATION. PRESCRIPTIONS REVIEWED WITH PT AND PHARMACY VERIFIED. EXITCARE UTILIZED AND EDUCATION GIVEN TO PT. F/U WITH PCP WITHIN 1 WEEK AND F/U WITH CARDIO SCHEDULED EDUCATION GIVEN TO PT. BELONGINGS LIST CHECKED AND BELONGINGS GIVEN TO PT. SKIN IS INTACT. IV LINE REMOVED. ID BAND REMOVED. FAMILY NOTIFIED.
== END 2021-02-21 15:15 | disposition home health service (06) | DRG 683 ==
LOC: ER 10:42 → TELE 13:28 → MED 14:46
PROVIDERS: ADMIT Family Medicine; ATTEND Family Medicine
DX: N17.0 Acute kidney failure with tubular necrosis (principal); E44.1 Mild protein-calorie malnutrition; I13.0 Hypertensive heart and chronic kidney disease with heart failure and stage 1 through stage 4 chronic kidney disease, or unspecified chronic kidney disease; E78.5 Hyperlipidemia, unspecified; F32.9 Major depressive disorder, single episode, unspecified; K21.9 Gastro-esophageal reflux disease without esophagitis; G47.33 Obstructive sleep apnea (adult) (pediatric); F41.9 Anxiety disorder, unspecified; G89.4 Chronic pain syndrome; J45.909 Unspecified asthma, uncomplicated; N18.9 Chronic kidney disease, unspecified; E88.09 Other disorders of plasma-protein metabolism, not elsewhere classified; I50.9 Heart failure, unspecified; Z86.711 Personal history of pulmonary embolism; Z79.01 Long term (current) use of anticoagulants; Z90.710 Acquired absence of both cervix and uterus; Z98.61 Coronary angioplasty status; R91.8 Other nonspecific abnormal finding of lung field; Z68.31 Body mass index [BMI] 31.0-31.9, adult; D50.9 Iron deficiency anemia, unspecified; Z20.822 Contact with and (suspected) exposure to COVID-19; F43.29 Adjustment disorder with other symptoms; M54.5 Low back pain; M47.816 Spondylosis without myelopathy or radiculopathy, lumbar region; Z85.42 Personal history of malignant neoplasm of other parts of uterus; M79.662 Pain in left lower leg; M79.661 Pain in right lower leg; T50.1X5A Adverse effect of loop [high-ceiling] diuretics, initial encounter; T44.5X5A Adverse effect of predominantly beta-adrenoreceptor agonists, initial encounter; M48.00 Spinal stenosis, site unspecified; Y92.009 Unspecified place in unspecified non-institutional (private) residence as the place of occurrence of the external cause
CPT/HCPCS: 36415; 71045-TC; 71250-TC; 80048-TC; 80053-TC; 80061-TC; 80076-TC; 82550-TC; 82570-TC; 82728-TC; 83540-TC; 83690-TC; 83735-TC; 83970; 84100-TC; 84155; 84155-TC; 84165; 84300-TC; 84439-TC; 84443-TC; 84484-TC; 85025-TC; 85730-TC; 87081-TC; 87086-TC; 97116-TC; 97530-TC; C9803; G0378; J2405; J3490; J7030

== ENCOUNTER 2024-11-03 14:50 | Inpatient (IN) | payer MEDICARE, BC ==
[~2024-11-03] VITALS: Ht 154.9 cm; Wt 59.4 kg
[~2024-11-03 14:50] MED LIST changes: +ATOR80TA PO; +CLOP75TA15 PO; +DULO30CA52 PO; +FAMO40TA7 PO; -FERR325T23 PO; +GABA300C PO; -HYDR-4077 PO; -HYDR25TA4 PO; +METO50TA16 PO; +OLME40TA18 PO; -ONDA4TAB8 PO; -OXYC1TAB12 MT; -PANT40TA49 PO; +POTA10TA11 PO; -PRED10TA PO; -ROSU5TAB PO; +SERT25TA5 PO; +VALS160T2 PO
[2024-11-03 17:09] LABS: BASOPHILS % (AUTO) 0.7 % (0.0-2.0); EOSINOPHILS % (AUTO) 0.3 % (0.0-6.0); HEMATOCRIT 40 % (33-45); HEMOGLOBIN 12.9 g/dL (11.5-14.8); LYMPHOCYTES # (AUTO) 1.2 K/uL (0.8-4.8); LYMPHOCYTES % (AUTO) 18.6 % (20.0-44.0); MEAN CORPUSCULAR HEMOGLOBIN 28 PG (26.0-33.0); MEAN CORPUSCULAR HGB CONC 33 g/dl (31.0-36.0); MEAN CORPUSCULAR VOLUME 86 fL (82-100); MONOCYTES # (AUTO) 0.4 K/uL (0.1-1.30); MONOCYTES % (AUTO) 6.3 % (2.0-12.0); NEUTROPHILS # (AUTO) 4.7 K/uL (1.8-8.9); NEUTROPHILS % (AUTO) 74.1 % (43.0-81.0); PLATELET COUNT (AUTO) 183 K/uL (150-450); RED BLOOD CELL COUNT(AUTO) 4.59 MIL/uL (4.0-5.2); RED CELL DISTRIBUTION WIDTH 14.6 % (11.5-15.0); WHITE BLOOD COUNT (AUTO) 6.3 K/uL (4.3-11.0)
[2024-11-03 17:33] LABS: CARBON DIOXIDE 29 mmol/L (21-32); CHLORIDE 104 mmol/L (98-107); CREATININE 1.9 mg/dL (0.6-1.3); GLUCOSE 86 mg/dL (74-106); POTASSIUM 4.6 mmol/L (3.5-5.1); SODIUM SERUM 139 mmol/L (136-145); UREA NITROGEN, BLOOD 23 mg/dL (7-18)
[2024-11-03] MEDS ORDERED: PROP10DR4 EACHEYE (17:44)
[2024-11-03] MEDS ORDERED: PRED10TA PO (17:44)
[2024-11-03] MEDS ORDERED: NYST30CR2 TP (17:44)
[2024-11-03] MEDS ORDERED: LOSA100T31 PO (17:44)
[2024-11-03] MEDS ORDERED: BREO ELLIPTA IH (17:44)
[2024-11-03] MEDS ORDERED: FLUT16SP BNOSTRILS (17:44)
[2024-11-03] MEDS ORDERED: ONDA8TAB13 PO (17:44)
[2024-11-03 18:03] LABS: INR 0.93 (0.91-1.10); PARTIAL THROMBOPLASTIN TIME 24.2 SEC (24.3-34.3); PROTHROMBIN TIME 9.6 SECS (9.2-11.1)
[2024-11-03] MEDS ORDERED: ASPIRIN EC 81 MG TABLET.DR PO ONE (18:29)
[2024-11-03] MEDS: ASPIRIN EC 81 MG TABLET.DR PO ONE (18:31)
[2024-11-03] MEDS ORDERED: ONDANSETRON HCL/PF 4 MG/2 ML VIAL IVP PRN (19:00)
[2024-11-03] MEDS ORDERED: MAG HYDROX/AL HYDROX/SIMETH 30 ML UDC PO PRN (19:00)
[2024-11-03] MEDS ORDERED: ACETAMINOPHEN 325 MG TABLET PO PRN (19:00)
[2024-11-03] MEDS ORDERED: MAGNESIUM HYDROXIDE 30 ML UDC PO PRN (19:00)
[2024-11-03] MEDS ORDERED: Z GUARD REMEDY 4 OZ OINT TP PRN (19:00)
[2024-11-03] MEDS: ACETAMINOPHEN W/ CODEINE#3 1 EA TABLET PO PRN (23:45)
[2024-11-04] VITALS (9 sets, daily range): BP systolic 6–170; BP diastolic 68–98; TEMP 97.5–98.2; O2SAT 92–100
[2024-11-04] MEDS: METOPROLOL TARTRATE 50 MG TABLET PO SCH (00:30)
[2024-11-04] MEDS: APIXABAN 2.5 MG TABLET PO SCH (00:30)
[2024-11-04 07:11] LABS: BASOPHILS % (AUTO) 0.6 % (0.0-2.0); EOSINOPHILS # (AUTO) 0.1 K/uL (0.0-0.7); EOSINOPHILS % (AUTO) 1.4 % (0.0-6.0); HEMATOCRIT 37 % (33-45); HEMOGLOBIN 12.1 g/dL (11.5-14.8); LYMPHOCYTES # (AUTO) 1.8 K/uL (0.8-4.8); LYMPHOCYTES % (AUTO) 32.4 % (20.0-44.0); MEAN CORPUSCULAR HEMOGLOBIN 28 PG (26.0-33.0); MEAN CORPUSCULAR HGB CONC 33 g/dl (31.0-36.0); MEAN CORPUSCULAR VOLUME 86 fL (82-100); MONOCYTES # (AUTO) 0.5 K/uL (0.1-1.30); MONOCYTES % (AUTO) 8.9 % (2.0-12.0); NEUTROPHILS # (AUTO) 3.2 K/uL (1.8-8.9); NEUTROPHILS % (AUTO) 56.7 % (43.0-81.0); PLATELET COUNT (AUTO) 162 K/uL (150-450); RED BLOOD CELL COUNT(AUTO) 4.28 MIL/uL (4.0-5.2); RED CELL DISTRIBUTION WIDTH 14.5 % (11.5-15.0); WHITE BLOOD COUNT (AUTO) 5.6 K/uL (4.3-11.0)
[2024-11-04 07:21] LABS: CALCIUM, SERUM 8.4 mg/dL (8.5-10.1); CREATININE 1.9 mg/dL (0.6-1.3); MAGNESIUM 2.4 mg/dL (1.8-2.4); POTASSIUM 4.1 mmol/L (3.5-5.1)
[2024-11-04] MEDS: FAMOTIDINE (20 MG) 20 MG TABLET PO SCH (08:05)
[2024-11-04 08:11] LABS: THYROID STIMULATING HORMONE 2.77 uIU/mL (0.358-3.74)
[2024-11-04] MEDS: GUAIFENESIN LA 600 MG TABLET.SA PO SCH (08:45)
[2024-11-04] MEDS: FLUTICASONE PROPIONATE 16 GM BOTTLE NS SCH (08:47)
[2024-11-04] MEDS ORDERED: METOPROLOL TARTRATE 50 MG TABLET PO SCH (09:00)
[2024-11-04] MEDS ORDERED: LOSARTAN POTASSIUM 50 MG TABLET PO SCH (09:00)
[2024-11-04] MEDS ORDERED: APIXABAN 2.5 MG TABLET PO SCH (09:00)
[2024-11-04] MEDS: VALSARTAN 80 MG TABLET PO SCH (09:03)
[2024-11-04] MEDS ORDERED: DICLOFENAC TOPICAL 100 GM TUBE TP PRN (09:30)
[2024-11-04] MEDS ORDERED: VALSARTAN 80 MG TABLET PO PRN (09:30)
[2024-11-04] MEDS ORDERED: FLUTICASONE/VILANTEROL 1 EACH BLST.W.DEV IH SCH (10:00)
[2024-11-04] MEDS: DICLOFENAC TOPICAL 100 GM TUBE TP PRN (11:08)
[2024-11-04] MEDS: BUDESONIDE RESPULE INH 0.5 MG/2 ML AMPUL.NEB NEB SCH (15:25)
[2024-11-04] MEDS: ALBUTEROL FS 2.5 MG/3 ML VIAL.NEB NEB SCH (15:26)
[2024-11-05] VITALS (8 sets, daily range): BP systolic 122–141; BP diastolic 68–77; TEMP 97.9–98.1; O2SAT 93–99
[2024-11-05 07:43] LABS: BASOPHILS % (AUTO) 0.5 % (0.0-2.0); EOSINOPHILS # (AUTO) 0.1 K/uL (0.0-0.7); EOSINOPHILS % (AUTO) 1.8 % (0.0-6.0); HEMATOCRIT 34 % (33-45); HEMOGLOBIN 11.2 g/dL (11.5-14.8); LYMPHOCYTES # (AUTO) 1.7 K/uL (0.8-4.8); MEAN CORPUSCULAR HEMOGLOBIN 28 PG (26.0-33.0); MEAN CORPUSCULAR HGB CONC 33 g/dl (31.0-36.0); MEAN CORPUSCULAR VOLUME 86 fL (82-100); MONOCYTES # (AUTO) 0.5 K/uL (0.1-1.30); NEUTROPHILS # (AUTO) 2.5 K/uL (1.8-8.9); NEUTROPHILS % (AUTO) 51.7 % (43.0-81.0); PLATELET COUNT (AUTO) 139 K/uL (150-450); RED BLOOD CELL COUNT(AUTO) 3.96 MIL/uL (4.0-5.2); RED CELL DISTRIBUTION WIDTH 14.3 % (11.5-15.0); WHITE BLOOD COUNT (AUTO) 4.8 K/uL (4.3-11.0)
[2024-11-05 08:18] LABS: CALCIUM, SERUM 8.4 mg/dL (8.5-10.1); CREATININE 1.7 mg/dL (0.6-1.3); POTASSIUM 4.3 mmol/L (3.5-5.1)
[2024-11-05] MEDS: VALSARTAN 80 MG TABLET PO SCH (09:29)
[2024-11-05 11:45] LABS: THYROID STIMULATING HORMONE 2.56 uIU/mL (0.358-3.74)
[2024-11-08 01:06] LABS: FOLIC ACID 3.1 ng/mL (>3.0)
== END 2024-11-05 14:30 | disposition home health service (06) | DRG 281 ==
LOC: ER 14:56 → TELE 20:50 → MED 11-05 12:32
PROVIDERS: ADMIT Internal Medicine; ATTEND Internal Medicine
DX: I49.3 Ventricular premature depolarization (principal); N17.9 Acute kidney failure, unspecified; I21.A1 Myocardial infarction type 2; G44.86 Cervicogenic headache; I12.9 Hypertensive chronic kidney disease with stage 1 through stage 4 chronic kidney disease, or unspecified chronic kidney disease; N18.9 Chronic kidney disease, unspecified; Z86.711 Personal history of pulmonary embolism; E86.0 Dehydration; E78.5 Hyperlipidemia, unspecified; J44.9 Chronic obstructive pulmonary disease, unspecified; K21.9 Gastro-esophageal reflux disease without esophagitis; Z79.01 Long term (current) use of anticoagulants; Z88.2 Allergy status to sulfonamides; M19.90 Unspecified osteoarthritis, unspecified site; Z86.73 Personal history of transient ischemic attack (TIA), and cerebral infarction without residual deficits; Z87.891 Personal history of nicotine dependence; E83.9 Disorder of mineral metabolism, unspecified; G43.909 Migraine, unspecified, not intractable, without status migrainosus; F41.9 Anxiety disorder, unspecified; G47.00 Insomnia, unspecified; G31.84 Mild cognitive impairment of uncertain or unknown etiology; M48.00 Spinal stenosis, site unspecified; G89.29 Other chronic pain; R00.0 Tachycardia, unspecified
CPT/HCPCS: 36415; 71045-TC; 72052-TC; 76770-TC; 80048-TC; 80061-TC; 82607-TC; 83735-TC; 83921; 84100-TC; 84425; 84439-TC; 84443-TC; 84484-TC; 85025-TC; 85652-TC; 85730-TC; 93307-TC; 93970-TC; 94799-TC; 97110-TC; 97530-TC; G0378; J2405; J7030